=== PATIENT | male | born 1990 | race Caucasian/White ===

== ENCOUNTER 2018-01-24 17:55 | Emergency (ER) | payer OTHER ==
[~2018-01-24] VITALS: Ht 172.7 cm; Wt 59.0 kg
[2018-01-24] MEDS ORDERED: KEPPRA 500 MG500 M1 PO (18:36)
[2018-01-24 20:07] VITALS: BP 109/73
== END 2018-01-24 20:08 | disposition home or self-care (01) ==
LOC: ER 17:55
DX: S06.5X0A Traumatic subdural hemorrhage without loss of consciousness, initial encounter (principal); V29.9XXA Motorcycle rider (driver) (passenger) injured in unspecified traffic accident, initial encounter; Y93.89 Activity, other specified; Y92.89 Other specified places as the place of occurrence of the external cause; Y99.8 Other external cause status